=== PATIENT | male | born 1950 | race Caucasian/White ===

== ENCOUNTER 2025-06-19 05:56 | Day surgery (SDC) | payer MEDICARE ==
--- NOTE | 2025-06-17 08:02 | NUR ---
CASE CANCELED PER DR LUO, PT AWARE.
[~2025-06-19] VITALS: Ht 182.9 cm; Wt 75.0 kg
[~2025-06-19 05:56] MED LIST: ALPHA LIPOIC A200 M1 PO; CEFAZOLIN SODIUM 2 GM in SODIUM CHLORIDE 0.9% 100 ML IV SCH; CLINDAMYCIN HC300 MG PO; COLACE100 MG PO; HYDROmorphone HCL 1 MG/ML SYR IV PRN; IBLOOD GLUCOSE TEST STRIP 1 EA TEST VI PRN; KETOROLAC TROMETHAMINE 15 MG/ML VIAL IV PRN; LACTATED RINGER'S 1,000 ML IV SCH; LIDOCAINE HCL 1% 5 ML SDV INJ ONE; ONE-DAILY MULT1 EACH PO; OXYCODONE/APAP 5/325 TAB PO PRN; TAMSULOSIN HCL0.4 MG PO; TRAMADOL HCL 50 MG TAB PO PRN
[2025-06-19 06:29] VITALS: BP 148/90
[2025-06-19] MEDS ORDERED: LIDOCAINE HCL 2% 5 ML SDV ONE (06:56)
[2025-06-19] MEDS ORDERED: ROCURONIUM BROMIDE 50 MG/5 ML SYR ONE ×3 (06:59→10:14)
[2025-06-19] MEDS ORDERED: IBLOOD GLUCOSE TEST STRIP 1 EA TEST VI PRN ×2 (07:00→08:15)
[2025-06-19] MEDS ORDERED: LIDOCAINE HCL 1% 5 ML SDV INJ ONE (07:00)
[2025-06-19] MEDS ORDERED: CEFAZOLIN SODIUM 2 GM in SODIUM CHLORIDE 0.9% 100 ML IV SCH (07:00)
[2025-06-19] MEDS ORDERED: fentaNYL citrate 100 MCG/2 ML VIAL ONE ×2 (07:19→08:42)
[2025-06-19] MEDS ORDERED: DEXAMETHASONE SOD PHOS 4 MG/ML VIAL ONE (08:03)
[2025-06-19] MEDS ORDERED: SUGAMMADEX SODIUM 200 MG/2 ML ML ONE (08:03)
[2025-06-19] MEDS ORDERED: fentaNYL citrate 50 MCG/ML SDV IV PRN (08:15)
[2025-06-19] MEDS ORDERED: NALOXONE HCL 0.4 MG SYR IV PRN (08:15)
[2025-06-19] MEDS ORDERED: HYDROmorphone HCL 1 MG/ML SYR IV PRN ×2 (08:15→12:00)
[2025-06-19] MEDS ORDERED: GLYCOPYRROLATE 1 MG/5 ML MDV ONE (08:29)
[2025-06-19] MEDS ORDERED: TRANEXAMIC ACID 1,000 MG/10 ML AMP ONE (08:32)
[2025-06-19] MEDS ORDERED: ACETAMINOPHEN 1,000 MG/100 ML VIAL ONE (08:41)
[2025-06-19 11:05] VITALS: BP 143/70
--- NOTE | 2025-06-19 11:05 | NUR ---
PT ARRIVED TO ON RA, PT RESTING IN HIGH FOWLERS. PT REPORTS 3/10 TOLERB[place] PAIN. PT "I FEEL LIKE I NEED TO PEE," GUTIERREZ EDUCATION GIVEN AND ALL QUESTIONS ANSWERED. PT SIPPING WATER AND DENIES NAUSEA. VSS. CALL LIGHT WITHIN REACH, PT HAS HIS CELL PHONE.
--- NOTE | 2025-06-19 11:15 | NUR ---
06/19/25 1115 Yoli Ibanez 1031 PT ARRIVED IN PACU NON RESPONSIVE TO NOXIOUS STIMULI WITH OPA IN PLACE. 1039 PT REACTIVE. OPA REMOVED. 1045 OXYGEN REMOVED. PT VISITING WITH STAFF AND ASKING QUESTIONS ABOUT CATHETER AND STENT. ALL QUESTIONS ANSWERED. 1100 SIPPING ON WATER. 1105 TO DS. REPORT GIVEN TO RN.
--- NOTE | 2025-06-19 11:54 | NUR ---
RX GIVEN TO TO FILL PER REQUEST.
[2025-06-19] MEDS ORDERED: OXYCODONE HCL 5 MG TAB PO PRN ×2 (12:00)
--- NOTE | 2025-06-19 12:08 | NUR ---
PT UP AND WALKING AROUND DEPARTMENT WITH THIS RN, PT STEADY ON HIS FEET AND IN RESTROOM FOR A BOWEL MOVEMENT. PT VERBALIZED UNDERSTANDING TO CALL WHEN DONE.
[2025-06-19 12:25] VITALS: BP 150/74
--- NOTE | 2025-06-19 12:28 | NUR ---
INTO PTS ROOM FOR ROUTINE REASSESSMENT. VS TAKEN. IV SITE ASSESSED. PT REPORTS PAIN 2/10 AND VERBALIZES THIS TO BE A TOLERABLE LEVEL OF PAIN FOR HIM. PT DENIES NAUSEA WHEN ASKED. PT TAKING PO FLUIDS WELL. GUTIERREZ CATH IN PLACE TO GRAVITY W/GROSS HEMATURIA NOTED. ALL QUESTIONS ANSWERED. CALL LIGHT WITHIN PT REACH. FALL PREVENTIONS IN PLACE.
[2025-06-19] MEDS ORDERED: SEVOFLURANE 250 ML BTL INH ONE (12:55)
[2025-06-19 13:04] VITALS: BP 150/80
--- NOTE | 2025-06-19 13:07 | NUR ---
1300-PT AMBUALTES TO RESTROOM. GAIT STEADY AND TOLERATED WELL. PT FEELS THE NEED TO HAVE A BOWEL MOVEMENT. PT STATES UNABLE TO GO. 1305-PT BACK TO BED. RESP EVEN AND UNLABORED. RATES PAIN 3/10. NO OTHER NEEDS AT THIS TIME. CALL LIGHT WITHIN REACH.
--- NOTE | 2025-06-19 17:54 | NUR ---
JARED 1315-WENT OVER DISCHARGE INSTRUCTIONS WITH PT AND . RETURNED DEMONSTRATION BY PT FOR GUTIERREZ CATH EMPTYING X'S 3. WENT OVER POSTOP MEDICATIONS. ALL QUESTIONS ANSWERED. THIS RN HELPED PT GET DRESSED. JARED 1355-PT AMBULATES TO WHEELCHAIR AND RIDE PROVIDED RIDE TO FRONT OF HOSPITAL WHERE RIDE WAS WAITING WITH THE CAR.
[2025-06-21 16:12] LABS: CALCULI MASS 51 mg (())
== END 2025-06-19 13:55 | disposition home or self-care (01) ==
LOC: OPS 05:56 → DS 05:56 → OPS 07:30
PROVIDERS: ATTEND Urology
PROC: 0TC78ZZ Extirpation of Matter from Left Ureter, Via Natural or Artificial Opening Endoscopic (ICD-10-PCS; principal; 2025-06-19 07:30)
PROC: 0T778DZ Dilation of Left Ureter with Intraluminal Device, Via Natural or Artificial Opening Endoscopic (ICD-10-PCS; 2025-06-19 07:30)
DX: N20.1 Calculus of ureter (principal); C61 Malignant neoplasm of prostate; N40.1 Benign prostatic hyperplasia with lower urinary tract symptoms; R33.8 Other retention of urine; Z79.899 Other long term (current) drug therapy; Z88.0 Allergy status to penicillin
CPT/HCPCS: 00912; 74018; 74430; 82365; C1769; C2617; J0131; J0688; J1100; J2003; J2405; J2704; J3010; J3490; J7121; Q9958

== ENCOUNTER 2025-06-22 11:52 | Emergency (ER) | payer MEDICARE ==
[~2025-06-22] VITALS: Ht 182.9 cm; Wt 75.0 kg
[~2025-06-22 11:52] MED LIST changes: -CEFAZOLIN SODIUM 2 GM in SODIUM CHLORIDE 0.9% 100 ML IV SCH; -HYDROmorphone HCL 1 MG/ML SYR IV PRN; -IBLOOD GLUCOSE TEST STRIP 1 EA TEST VI PRN; -KETOROLAC TROMETHAMINE 15 MG/ML VIAL IV PRN; -LACTATED RINGER'S 1,000 ML IV SCH; -LIDOCAINE HCL 1% 5 ML SDV INJ ONE; -OXYCODONE/APAP 5/325 TAB PO PRN; -TRAMADOL HCL 50 MG TAB PO PRN
[2025-06-22] MEDS ORDERED: OXYCODONE HCL5 M3 (12:09)
[2025-06-22] MEDS ORDERED: CIPROFLOXACIN500 MG (12:09)
[2025-06-22] MEDS ORDERED: LIDOCAINE 2% VISCOUS 6 ML SYR TOP ONE (12:15)
[2025-06-22 12:52] VITALS: BP 143/86
== END 2025-06-22 13:06 | disposition home or self-care (01) ==
LOC: ED 11:52
DX: R33.9 Retention of urine, unspecified (principal); Z79.899 Other long term (current) drug therapy; Z88.0 Allergy status to penicillin
CPT/HCPCS: 51702; 51798; 99283; A4311